=== PATIENT | male | born 1990 | race Caucasian/White ===

== ENCOUNTER 2024-10-06 10:15 | Emergency (ER) | payer BC ==
[~2024-10-06] VITALS: Ht 182.9 cm; Wt 90.7 kg
[~2024-10-06 10:15] MED LIST: MINO100C40
[2024-10-06] MEDS: LIDOCAINE 1% INJ 50 ML MDV IJ ONE (12:39)
[2024-10-06 12:48] VITALS: BP 138/70; TEMP 97.9; O2SAT 99
== END 2024-10-06 12:48 | disposition home or self-care (01) ==
LOC: ER 10:20
DX: S61.412A Laceration without foreign body of left hand, initial encounter (principal); W25.XXXA Contact with sharp glass, initial encounter; Y93.89 Activity, other specified; Y92.89 Other specified places as the place of occurrence of the external cause; Y99.8 Other external cause status; Z60.2 Problems related to living alone
CPT/HCPCS: 73130-TC